=== PATIENT | male | born 1985 | race Hispanic/Latino ===

== ENCOUNTER 2019-03-22 07:50 | Inpatient (IN) | payer BC ==
[2019-03-22] MEDS ORDERED: Piperacillin/Tazobactam 4.5 GM VIAL ONE (08:33)
[2019-03-22] MEDS ORDERED: Clindamycin/D5W 900 mg/50 ml Premix Bag ONE (08:33)
[2019-03-22 08:37] LABS: #Eosinphils 0.1 thou/uL (0.0-0.7); #Lymphocytes 1.5 thou/uL (1.20-3.40); #Monocytes 0.8 thou/uL (0.11-0.59); #Neutrophils 8.2 thou/uL (1.40-6.50); %Basophils 0.2 % (0.0-1.0); %Eosinophils 0.7 % (0.0-10.0); %Lymphocytes 13.9 % (21.0-51.0); %Monocytes 7.8 % (0.0-10.0); %Neutrophils 77.3 % (42.0-75.0); Hemoglobin 15.3 g/dL (14.0-18.0); Mean Corpuscular HGB CONC 33.4 g/dL (32.0-36.0); Mean Corpuscular Hemoglobin 31.1 pg (27.0-31.0); Mean Platelet Volume 8.7 fL (7.4-10.4); Platelet Count 146 thou/uL (130-400); RBC Distribution Width 12.1 % (11.5-14.5); Red Blood Cell (RBC) Count 4.91 mill/uL (4.70-6.10); White Blood Cell (WBC) Count 10.6 thou/uL (4.8-10.8)
[2019-03-22 08:52] LABS: Base Excess-Venous 1.4 mmol/L (-2.0 to 3.0); Bicarbonate (HCO3v) 25.1 mmol/L (22.0-28.0); CO2 Tension (PvCO2) 36.1 mmHg (40.0-50.0); Calcium, Ionized 1.05 mmol/L (See Comments:); Chloride 102 mmol/L (98-107); Hemoglobin - Calc 15.5 g/dL (14.0-18.0); Potassium 4.8 mmol/L (3.5-5.1); Sodium 138 mmol/L (138-145); T. Carbon Dioxide 26.2 mmol/L (22.0-28.0); vO2 Saturation-calc 79.7 % (60.0-85.0)
[2019-03-22 08:52] LABS: ALT (SGPT) 29 U/L (8-55); AST (SGOT) 15 U/L (5-34); Albumin 3.9 g/dL (3.5-5.0); Alkaline Phosphatase 88 U/L (40-150); Anion Gap 15 mmol/L (10-20); BUN (Urea Nitrogen) 10 mg/dL (8.9-20.6); Bilirubin, Total 0.4 mg/dL (0.2-1.2); Calc. Creatinine Clearance 0 mL/min (70-130); Calcium 9.1 mg/dL (7.8-10.44); Carbon Dioxide 23 mmol/L (22-29); Chloride 102 mmol/L (98-107); Estimated GFR-MDRD Greater than 90; Globulin 3.6 g/dL (2.4-3.5); Glucose 208 mg/dL (70-105); Potassium 3.6 mmol/L (3.5-5.1); Protein, Total 7.5 g/dL (6.0-8.3); Sodium 136 mmol/L (136-145)
[2019-03-22] MEDS ORDERED: diphenhydrAMINE 50 MG/ML VIAL ONE (09:39)
[2019-03-22] MEDS ORDERED: Lorazepam 2 MG/ML VIAL ONE (09:44)
--- NOTE | 2019-03-22 09:51 | CT ---
CT LEFT LOWER EXTREMITY WITH IV CONTRAST: HISTORY: Pain, swelling, and redness in the left leg. FINDINGS: There is edema and stranding of the subcutaneous fat at the anterior aspect of the left leg. No locu lar fluid collection is seen to suggest abscess formation. The bony structures are intact. IMPRESSION: Findings are suggestive of cellulitis of the left leg. No evidence of osteomyelitis. POS: [facility]
[2019-03-22] MEDS ORDERED: Fentanyl 100 MCG/2 ML VIAL ONE (10:42)
[2019-03-22] MEDS ORDERED: Adacel (T-DAP) 0.5 ML SYRINGE ONE ×2 (11:31→11:44)
--- NOTE | 2019-03-22 11:38 | PDOC.FPRHP ---
- History of Present Illness Chief Complaint: Cellulitis History of Present Illness: Pt is a 33 yo male w/o significant PMH who presented with worsening LLE redness , erythema, pain and diagnosed yesterday with cellulitis, treated with 2 g rocephin and bactrim. His symptoms started mid-week. The lesion started on the distal, medial portion of LLE and progressed up his medial leg to medial thigh. When he first noted the LE symptoms he was nauseated, and felt a subjective fever. He remained with symptoms until Sunday prompting him to be seen by [facility]. 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 He and family were concerned by rate of growth of lesion. ED Course: In the ED vitals were stable. Lactic, WBC, Kidney function WNL. CRP 17.8, Glucose 208. CT Scan of LE was performed which revealed no signs of fascia involvement, noted to be cellulitis. Dr. Norman was consulted due to the rapid progression of lesion. Of note during his CT scan he became anxious requiring benadryl administration. - Allergies/Adverse Reactions Allergies Allergy/AdvReac Type Severity Reaction Status Date / Time No Known Allergies Allergy Verified 03/22/19 15:23 - History PMHx: denies PSHx: denies FHx: denies Social: denies - Review of Systems General: reports: fever/chills, weight/appetite/sleep changes ENT: denies: nasal congestion, rhinorrhea Respiratory: denies: cough, shortness of breath Cardiovascular: reports: edema. denies: chest pain Gastrointestinal: reports: nausea. denies: vomiting Skin: reports: rashes, lesions Musculoskeletal: denies: pain, tenderness Neurological: reports: weakness. denies: numbness Psychological: reports: anxiety. denies: depression - Vital signs BP: 99/64 HR: 79 RR: 16 Tmax: 99.0 Pox: 99% on RA Wt: 117 kg - Physical Exam -Constitutional: Pt lying in bed, pt sleeping after receiving benadryl for anxiety during CT scan , uncomfortable appearing but not ill HEENT: PERRLA, EOMI Neck: FROM, trachea midline -Neck: Acanthosis nigricans Chest: no-tender to palpation, no lesions Heart: RRR, normal S1/S2 Lungs: CTAB, no respiratory distress Abdomen: soft, bowel sounds present Musculoskeletal: normal structure, ROM grossly normal Neurological: no focal deficit, CN II-XII intact -Skin: Purpura/ecchymosis FMR H&P: Results - Labs Result Diagrams: 03/22/19 08:23 03/22/19 08:23 Lab results: WBC 10.6 thou/uL (4.8-10.8) 03/22/19 08:23 Hgb 15.3 g/dL (14.0-18.0) 03/22/19 08:23 Hct 45.7 % (42.0-52.0) 03/22/19 08:23 MCV 93.0 fL (78.0-98.0) 03/22/19 08:23 Plt Count 146 thou/uL (130-400) 03/22/19 08:23 Neutrophils % 77.3 % (42.0-75.0) H 03/22/19 08:23 ESR Westergren 18 mm/hr (Less than 15) 03/22/19 08:23 VBG pCO2 36.1 mmHg (40.0-50.0) L 03/22/19 08:50 VBG pO2 41.6 mmHg (35.0-45.0) 03/22/19 08:50 Sodium 136 mmol/L (136-145) 03/22/19 08:23 Potassium 3.6 mmol/L (3.5-5.1) 03/22/19 08:23 Chloride 102 mmol/L (98-107) 03/22/19 08:23 Carbon Dioxide 23 mmol/L (22-29) 03/22/19 08:23 BUN 10 mg/dL (8.9-20.6) 03/22/19 08:23 Creatinine 0.84 mg/dL (0.7-1.3) 03/22/19 08:23 Glucose 208 mg/dL (70-105) H 03/22/19 08:23 Lactic Acid 1.4 mmol/L (0.5-2.2) 03/22/19 08:23 Calcium 9.1 mg/dL (7.8-10.44) 03/22/19 08:23 Total Bilirubin 0.4 mg/dL (0.2-1.2) 03/22/19 08:23 AST 15 U/L (5-34) 03/22/19 08:23 ALT 29 U/L (8-55) 03/22/19 08:23 Alkaline Phosphatase 88 U/L (40-150) 03/22/19 08:23 C-Reactive Protein 17.81 mg/dL (= or < 0.5) H 03/22/19 08:23 Serum Total Protein 7.5 g/dL (6.0-8.3) 03/22/19 08:23 Albumin 3.9 g/dL (3.5-5.0) 03/22/19 08:23 - Radiology Interpretation Other Additional comment: CT Scan of LLE revealed findings suggestive of cellulitis. No signs of osteomyelitis. FMR H&P: A/P - Problem List (1) Cellulitis of left lower extremity Current Visit: Yes Status: Acute Code(s): L03.116 - CELLULITIS OF LEFT LOWER LIMB (2) Hyperglycemia Current Visit: Yes Status: Acute Code(s): R73.9 - HYPERGLYCEMIA, UNSPECIFIED - Plan Pt is a 33 yo male without significant PMH who is admitted for a LLE cellulitis , currently being treated with vancomycin and assessing A1c for possible DM. # LLE Cellulitis Procalcitonin 2.51, CRP 17.8, WBC WNL. Lesion is painful, progressing half-way up medial thigh, ecchmyosis vs purpura on medial LLE. Pt had 1 day of ceftriaxone 2 g, bactrim in the outpt setting. - Continue vanc - Vanc trough pending - Procalcitonin, BMP, CBC in am - lesion demarcated, trend size # Hyperglycemia BG 208, acanthosis nigricans noted on exam. Likely precipitating factor for cellulitis - pending A1c Fluids: none VTE Prophylaxis: Lovenox Diet: Diabetic Code: Full Disposition/LOS: Pt will be admitted to OB's likely needing less than 2 midnight stay. FMR H&P: Upper Level - Pertinent history 33 yo M with no significant medical hx here with complaint of cellulitis. He was dxd yesterday at an urgent care with LLE cellulitis and started on Bactrim DS and given IM Rocephin. Symptoms initially started about 5 days ago with an area of redness and pain over his ankle that quickly spread up his medial leg. Following initial outpatient treatment he began to have subjective fever and cold sweats. Due to worsening condition he presented to the ED for evaluation. In the ED, WBC count and vitals were normal, however CRP and procal were elevated and a left shift was noted. Patient was given Vanc, Zosyn, and clindamycin and blood cultures were drawn. See video intern portion of note for full ROS, PE, vitals, and labs ROS General complains of fever and chills CV denies CP or palpitations Resp denies cough or SOB Neuro denies weakness or numbness in extremities Skin complains of redness and tenderness in L LE GI denies n/v/d - Pertinent findings PE General A&O x4, no acute distress CV RRR, no murmur Resp CTA, no respiratory distress Neuro no weakness or changes in sensation Extremities normal pulses, cap refill normal Skin area of erythema most prominent over anterior and medial L ankle. Area extends upward medially to the patients thigh. No fluctuant masses or drainage. There is a 5cm x 5xm area of hemorrhagic vesicles on medial ankle. All other areas of skin are normal. - Plan Date/Time: 03/22/191137 I, Mason Cook DO, have evaluated this patient and agree with findings/plan as outlined by video intern resident. Pertinent changes/additions are listed here. 1.LLE cellulitis -Continue Vanc -Wali area of erythema and monitor for expansion -CT reassuring for lack of abscess or subcutaneous emphysema. Low concern for necrotizing fasciitis -Motrin for pain -Trend procal 2.Hyperglycemia -Check A1c. Pt does not have dx of DM, however has a strong FHx. -Low carb diet PPx Lovenox Diet Low carb Code Full Dispo: Patient is stable, would expect significant improvement over the next 2- 3 days with discharge to home. Addendum - Attending - Attending Attestation Date/Time: 03/22/192026 I personally evaluated the patient and discussed the management with Dr. Sandoval /Joyce. I agree with the History, Examination, Assessment and Plan documented above with any addition or exceptions noted below. Patient here with cellulitis that has progressed despite outpatient antibiotics. Patient reported worsening pain, malaise, erythema, and bruising over the last 1 day. He also reports hot flashes. Labs do not show systemic infection, and CT scan does not reveal abscess or deep infection. Wound has been marked. Patient will be placed on Vancomycin and await culture results. He is also newly diagnosed DM which is likely contributing to the difficulty in eradicating infection. Anticipate 2-3 days hospitalization.
[2019-03-22] MEDS ORDERED: Ondansetron ODT 4 MG TAB PO PRN (13:01)
[2019-03-22 13:47] LABS: Hemoglobin A1c 9.1 % (4.0-6.0)
[2019-03-22] MEDS ORDERED: Dextrose 50% Abboject 50 ML SYRINGE SLOW IVP PRN (14:33)
[2019-03-22] MEDS ORDERED: Dextrose 5% in Water 1,000 ML IV PRN (14:33)
[2019-03-22] MEDS ORDERED: HumaLOG 300 UNITS/3 ML VIAL SC PRN (14:33)
[2019-03-22 14:34] VITALS: BMI 36.9
[2019-03-22] MEDS ORDERED: Sodium Chloride 0.9% 1,000 ML IV SCH (15:45)
[2019-03-22] MEDS: HumaLOG 300 UNITS/3 ML VIAL SC PRN (16:28)
[2019-03-22] MEDS ORDERED: ISOVUE-370 76%-LOCM 1 ML ONE (16:41)
--- NOTE | 2019-03-22 17:21 | CON ---
DATE OF CONSULTATION: 03/22/2019 CHIEF COMPLAINT: Left lower extremity cellulitis. HISTORY OF PRESENT ILLNESS: This is a 33-year-old male, who is newly diagnosed with diabetes during this admission, who presents with cellulitis to the left lower extremity, worsened overnight after starting oral antibiotics, admitted to the hospital for IV antibiotics. He notes pain to his pretibial region. No fevers or chills at home. He has been hemodynamically stable since admission. PAST MEDICAL HISTORY: Includes diabetes mellitus, previously unknown. Otherwise, medical history, he denies. PAST SURGICAL HISTORY: Denies. MEDICATIONS: Medicines taken daily none. ALLERGIES: NO KNOWN DRUG ALLERGIES. SOCIAL HISTORY: No smoking, alcohol, or other drugs. REVIEW OF SYSTEMS: Ten system review of systems is otherwise negative as described above. PHYSICAL EXAMINATION: VITAL SIGNS: Blood pressure is 99/64, pulse 79, respirations 16, he is afebrile. HEENT: Sclerae anicteric. Oropharynx clear. NECK: No lymphadenopathy. CHEST: Clear. HEART: Regular rate and rhythm. ABDOMEN: Soft, nontender, nondistended. EXTREMITIES: Examination of his left lower extremity revealed there to be good palpable peripheral pulses. There is erythema with ecchymoses to the anterior pretibial region. There is 1 dark area on the lateral aspect of the calf that his says is a birthmark. He has some streaking going up the medial aspect of his leg. His deeper compartments are negative and nontender. His foot is nontender to touch. LABORATORY DATA: White blood cell count 10, hemoglobin 15, platelet count is 146. He has no bands. His venous hematocrit is 46. Lactate is normal. Creatinine is normal at 0.84. IMAGING STUDIES: CT scan shows evidence of cellulitis without any gas in the deeper structures or no obvious fluid in the deeper compartments of the leg. ASSESSMENT: Severe cellulitis and new onset diabetic. PLAN: Continue IV antibiotics, glucose control. We will follow with you. Job ID: [id number]
[2019-03-22] MEDS: Acetaminophen 325 MG TAB PO PRN ×2 (17:40→22:05)
[2019-03-22] MEDS: Enoxaparin Sodium 40 MG/0.4 ML SYRINGE SC SCH (20:26)
[2019-03-22] MEDS ORDERED: Enoxaparin Sodium 40 MG/0.4 ML SYRINGE SC SCH (21:00)
[2019-03-23 05:06] LABS: Anion Gap 14 mmol/L (10-20); BUN (Urea Nitrogen) 9 mg/dL (8.9-20.6); Calc. Creatinine Clearance 238 mL/min (70-130); Calcium 8.3 mg/dL (7.8-10.44); Carbon Dioxide 18 mmol/L (22-29); Chloride 106 mmol/L (98-107); Estimated GFR-MDRD Greater than 90; Glucose 175 mg/dL (70-105); Sodium 134 mmol/L (136-145)
--- NOTE | 2019-03-23 05:59 | PDOC.FM ---
- Subjective Subjective: Pt is doing well this morning. He states there is pain on LLE with ambulation but he noticeably sees reduction in erythema. He did not a blister on R lower lip starting yesterday. He has a pinpoint ulcer on R upper mucosa as well. He did not appreciate any other lesions. - Objective Vital Signs & Weight: Vital Signs (12 hours) Temp Pulse Resp BP Pulse Ox 03/23/19 00:23 98.4 F 57 L 16 102/68 96 03/22/19 20:41 98 F 77 18 105/77 95 Weight Weight 113.398 kg I&O: 03/21/19 03/22/19 03/23/19 06:59 06:59 06:59 Intake Total 575 Balance 575 Result Diagrams: 03/23/19 06:06 03/23/19 04:25 Phys Exam - Physical Examination Constitutional: NAD HEENT: PERRLA, moist MMs blister on R lower lip, ulcer on R upper mucosa, both tender to touch Respiratory: clear to auscultation bilateral Cardiovascular: RRR, no significant murmur Gastrointestinal: soft, non-tender, no distention Musculoskeletal: no edema, pulses present -: LLE erythema decreasing in size compared to marked line, ecchymosis remains Dx/Plan (1) Cellulitis of left lower extremity Code(s): L03.116 - CELLULITIS OF LEFT LOWER LIMB Status: Acute (2) Hyperglycemia Code(s): R73.9 - HYPERGLYCEMIA, UNSPECIFIED Status: Acute (3) Diabetes Code(s): E11.9 - TYPE 2 DIABETES MELLITUS WITHOUT COMPLICATIONS Status: Acute - Plan Plan: Pt is a 33 yo male without significant PMH who is admitted for a LLE cellulitis , currently being treated with vancomycin and assessing A1c for possible DM. # LLE Cellulitis Procalcitonin 2.51, CRP 17.8, WBC WNL. Lesion is painful, progressing retirement up medial thigh, ecchmyosis vs purpura on medial LLE. Pt had 1 day of ceftriaxone 2 g, bactrim in the outpt setting. - Continue vanc - consider switching to Bactrim or Augmentin PO and if handles well d/c - Vanc trough pending at 0900 03/23 - Procalcitonin, BMP, CBC in am - lesion demarcated, downward trending in size. - Dr. Norman following pt, appreciate recs. # Diabetes Mellitus BG 208 on admission, acanthosis nigricans noted on exam. Likely precipitating factor for cellulitis. A1c 9.1 - accuchecks, SSI - consider starting Metformin 500 mg daily then increase in outpt setting # Oral Blister Monitor. No other lesions, new erythema. Not likely red man syndrome. Likely stress response. Fluids: none VTE Prophylaxis: Lovenox Diet: Diabetic Code: Full Disposition/LOS: Pt will be admitted to OB's likely needing less than 2 midnight stay. Addendum - Attending - Attending Attestation Date/Time: 03/23/19 3397 I personally evaluated the patient and discussed the management with Dr. Sandoval. I agree with the History, Examination, Assessment and Plan documented above with any addition or exceptions noted below. Patient here with cellulitis failed outpatient therapy. He continues on Vanc. Lesion is improving and pain improved. Continue Vanc, await cultures, and ambulate frequently. Patient will need treatment of his newly diagnosed DM.
[2019-03-23] MEDS: HumaLOG 300 UNITS/3 ML VIAL SC PRN ×2 (06:13→12:15)
[2019-03-23 06:57] LABS: #Eosinphils 0.1 thou/uL (0.0-0.7); #Lymphocytes 2.2 thou/uL (1.20-3.40); #Monocytes 0.6 thou/uL (0.11-0.59); #Neutrophils 4.4 thou/uL (1.40-6.50); %Basophils 0.6 % (0.0-1.0); %Eosinophils 1.8 % (0.0-10.0); %Lymphocytes 30.1 % (21.0-51.0); %Monocytes 8.3 % (0.0-10.0); %Neutrophils 59.3 % (42.0-75.0); Mean Corpuscular HGB CONC 34.9 g/dL (32.0-36.0); Mean Corpuscular Hemoglobin 32.8 pg (27.0-31.0); Mean Corpuscular Volume 93.9 fL (78.0-98.0); Mean Platelet Volume 9.3 fL (7.4-10.4); Platelet Count 148 thou/uL (130-400); Red Blood Cell (RBC) Count 4.27 mill/uL (4.70-6.10); White Blood Cell (WBC) Count 7.4 thou/uL (4.8-10.8)
--- NOTE | 2019-03-23 09:22 | PRG ---
DATE OF SERVICE: 03/23/2019 SUBJECTIVE: Mr. Espana is complaining of localized pain. No fevers or chills. OBJECTIVE: VITAL SIGNS: Blood pressure 116/77, pulse 74, respirations 18, temperature 98.2. EXTREMITIES: Left lower extremity, the streaking and redness on the upper inner thigh is improved. There is no more increased erythema outside the circled area. Within the circled area, the area of ecchymoses is now more blistering, but no bulla, no crepitants. LABORATORY DATA: White cell count is 7, with a normal differential. Creatinine 0.7, glucose 175. ASSESSMENT: Cellulitis to the left lower extremity in a patient with new onset diabetes mellitus. PLAN: Continue close observation. We will make n.p.o. after midnight in case elected to do debridement of this tomorrow. I think, the overall cellulitic picture is improved, but the blistering is a little bit worse. Job ID: [id number]
[2019-03-23] MEDS: Acetaminophen 325 MG TAB PO PRN (14:05)
[2019-03-23] MEDS: metFORMIN 500 MG TAB PO SCH (16:36)
[2019-03-23] MEDS ORDERED: diphenhydrAMINE 25 MG CAP PO PRN (19:15)
[2019-03-23 19:45] LABS: Vancomycin, Trough 15.5 ug/mL
[2019-03-23] MEDS: Enoxaparin Sodium 40 MG/0.4 ML SYRINGE SC SCH (19:57)
[2019-03-24 06:35] LABS: #Basophils 0.1 thou/uL (0.0-0.2); #Eosinphils 0.2 thou/uL (0.0-0.7); #Lymphocytes 2.6 thou/uL (1.20-3.40); #Monocytes 0.6 thou/uL (0.11-0.59); #Neutrophils 5.5 thou/uL (1.40-6.50); %Basophils 0.8 % (0.0-1.0); %Eosinophils 2.3 % (0.0-10.0); %Lymphocytes 28.5 % (21.0-51.0); %Monocytes 7.1 % (0.0-10.0); %Neutrophils 61.2 % (42.0-75.0); Hemoglobin 14.5 g/dL (14.0-18.0); Mean Corpuscular Hemoglobin 31.7 pg (27.0-31.0); Mean Corpuscular Volume 93.1 fL (78.0-98.0); Mean Platelet Volume 8.6 fL (7.4-10.4); Platelet Count 182 thou/uL (130-400); Red Blood Cell (RBC) Count 4.57 mill/uL (4.70-6.10)
[2019-03-24 06:58] LABS: Anion Gap 11 mmol/L (10-20); BUN (Urea Nitrogen) 8 mg/dL (8.9-20.6); Calc. Creatinine Clearance 232 mL/min (70-130); Carbon Dioxide 24 mmol/L (22-29); Chloride 103 mmol/L (98-107); Estimated GFR-MDRD Greater than 90; Glucose 136 mg/dL (70-105); Potassium 3.9 mmol/L (3.5-5.1); Sodium 134 mmol/L (136-145)
--- NOTE | 2019-03-24 08:40 | PDOC.FM ---
- Subjective Subjective: Pt is unchanged from yesterday. Remains with pain in LE on ambulatin. - Objective Vital Signs & Weight: Vital Signs (12 hours) Temp Pulse Resp BP Pulse Ox 03/24/19 07:36 98.0 F 64 20 113/73 95 03/24/19 03:50 98.6 F 64 18 105/68 95 03/23/19 23:08 98.7 F 67 16 118/78 97 Weight Weight 113.398 kg I&O: 03/23/19 03/24/19 03/25/19 06:59 06:59 06:59 Intake Total 1055 Balance 1055 Result Diagrams: 03/24/19 06:21 03/24/19 06:21 Phys Exam - Physical Examination Constitutional: NAD HEENT: PERRLA, moist MMs Respiratory: no wheezing, clear to auscultation bilateral Cardiovascular: RRR, no significant murmur Gastrointestinal: soft, non-tender, no distention Musculoskeletal: no edema, pulses present Deviation from normal: Erythema on Left medial lower extremity. blister is unchanged Dx/Plan (1) Cellulitis of left lower extremity Code(s): L03.116 - CELLULITIS OF LEFT LOWER LIMB Status: Acute (2) Hyperglycemia Code(s): R73.9 - HYPERGLYCEMIA, UNSPECIFIED Status: Acute (3) Diabetes Code(s): E11.9 - TYPE 2 DIABETES MELLITUS WITHOUT COMPLICATIONS Status: Acute - Plan Plan: Pt is a 33 yo male without significant PMH who is admitted for a LLE cellulitis , currently being treated with vancomycin and assessing A1c for possible DM. # LLE Cellulitis Procalcitonin 0387, WBC WNL. Lesion is painful but regressing in size, ecchmyosis vs purpura on medial LLE. Pt had 1 day of ceftriaxone 2 g, bactrim in the outpt setting. - Continue vanc - Vanc trough WNL on 03/23 - Procalcitonin, BMP, CBC in am - lesion demarcated, downward trending in size. - Dr. Norman following pt, appreciate recs; follow up on possible surg # Diabetes Mellitus BG 208 on admission, acanthosis nigricans noted on exam. Likely precipitating factor for cellulitis. A1c 9.1, BG improved 129 with start of metformin - accuchecks, SSI - consider starting Metformin 500 mg daily then increase in outpt setting # Oral Blister Monitor. No other lesions, new erythema. Not likely red man syndrome. Likely stress response. Fluids: none VTE Prophylaxis: Lovenox Diet: Diabetic Code: Full Disposition/LOS: Pt will be admitted to OB's likely needing less than 2 midnight stay. Addendum - Attending - Attending Attestation Date/Time: 03/24/19 2272 I personally evaluated the patient and discussed the management with Dr. Sandoval. I agree with the History, Examination, Assessment and Plan documented above with any addition or exceptions noted below.
--- NOTE | 2019-03-24 08:58 | PRG ---
DATE OF SERVICE: 03/24/2019 SUBJECTIVE: Mr. Espana is still having pain in this area of his pretibial region in the left lower extremity. His sugars were controlled. He is hemodynamically stable. Afebrile. OBJECTIVE: On physical exam, the area that was ecchymoses is now more of a blister, very tender to touch. The red streaking going up his inner leg is improved. LABORATORY DATA: His white blood count cell is 9. He has a normal differential. His creatinine is 0.72. ASSESSMENT: Cellulitis to left lower extremity with bulla formation now. PLAN: I think he probably needs to have this explored in the operating room just to be sure there is no necrotizing component to it. He is n.p.o. We will get him consented. Dr. Agosto will probably do that for me this afternoon. Job ID: [id number]
[2019-03-24] MEDS: metFORMIN 500 MG TAB PO SCH ×2 (09:05→17:55)
[2019-03-24] MEDS ORDERED: Lidocaine 1% PF 5 ML VIAL ONE (13:08)
[2019-03-24] MEDS ORDERED: Dexamethasone 20 MG/5 ML VIAL ONE (13:08)
[2019-03-24] MEDS ORDERED: PROPOFOL 200 MG/20 ML VIAL ONE (13:08)
[2019-03-24] MEDS ORDERED: Ondansetron PF 4 MG/2 ML Vial ONE (13:08)
[2019-03-24] MEDS ORDERED: Bupivacaine HCl 0.5%/Epinephrine 1:200,000/PF 30 ml Vial ONE (13:56)
[2019-03-24] MEDS ORDERED: Lidocaine 2% PF 5 ML VIAL ONE (13:56)
[2019-03-24] MEDS ORDERED: Midazolam HCl 2 mg/2 ml Vial ONE (14:27)
[2019-03-24] MEDS ORDERED: Fentanyl 100 MCG/2 ML VIAL ONE (14:27)
[2019-03-24] MEDS ORDERED: traMADol HCl 50 MG TAB PO PRN (16:02)
[2019-03-24] MEDS: HumaLOG 300 UNITS/3 ML VIAL SC PRN (18:45)
[2019-03-24 20:24] LABS: Vancomycin, Trough 16.2 ug/mL
[2019-03-24] MEDS: Enoxaparin Sodium 40 MG/0.4 ML SYRINGE SC SCH (20:38)
--- NOTE | 2019-03-24 21:06 | OP ---
DATE OF PROCEDURE: 03/24/2019 PREOPERATIVE DIAGNOSIS: Left leg abscess with blisters. POSTOPERATIVE DIAGNOSIS: Left leg abscess with blisters. Note the patient was seen by Dr. Norman who asked me to assume his care and perform an incision and drainage today. Dr. Norman did the consult yesterday. PROCEDURES PERFORMED: Incision and drainage of left leg abscess, finding some cloudy fluid and removal of blister. Wound left open for healing by secondary intention, 3.5 cm skin incision made and culture submitted. ANESTHESIA: General, local 0.5% Marcaine with epinephrine 30 mL mixed with 2% Xylocaine 10 mL. DESCRIPTION OF PROCEDURE: The patient was taken to the operating room where under general anesthesia, the left lower extremity was prepared with Betadine and draped in routine fashion. Blistered skin was removed. Yellow clear fluid under the blister contents was cultured. Incision was made and there was small amount of cloudy fluid, sent for culture, but no other significant large abscess was noted. Wound left open for healing by secondary intention. Local anesthetic, wet-to-dry dressings applied. The patient tolerated the procedure well. The patient can be discharged home washing the wound daily with soap and water, saline wet-to-dry dressings. He could be discharged home tomorrow after we look at the wound. Job ID: [id number]
[2019-03-25] MEDS: Ibuprofen 600 MG TAB PO PRN ×2 (02:47→08:04)
[2019-03-25] MEDS: Acetaminophen 500 MG TAB PO PRN ×3 (02:47→23:47)
[2019-03-25] MEDS: traMADol HCl 50 MG TAB PO PRN ×2 (03:53→20:36)
--- NOTE | 2019-03-25 06:25 | PDOC.FM ---
- Subjective Subjective: Pt is doing well w/o any complaints. He is tolerating metformin well. - Objective Vital Signs & Weight: Vital Signs (12 hours) Temp Pulse Resp BP Pulse Ox 03/25/19 03:37 98.3 F 68 18 105/71 97 03/25/19 00:00 98.4 F 64 18 126/73 95 03/24/19 20:07 98.1 F 67 16 114/76 95 Weight Weight 113.398 kg I&O: 03/23/19 03/24/19 03/25/19 06:59 06:59 06:59 Intake Total 1055 600 Balance 1055 600 Result Diagrams: 03/25/19 08:02 03/25/19 08:02 Phys Exam - Physical Examination Constitutional: NAD HEENT: PERRLA, sclera anicteric Respiratory: clear to auscultation bilateral Cardiovascular: RRR, no significant murmur Gastrointestinal: soft, non-tender, no distention, positive bowel sounds Musculoskeletal: no edema, pulses present LLE debridement ~1.5 inches in length, tissue looks healthy Neurological: non-focal, normal sensation, moves all 4 limbs Psychiatric: normal affect, A&O x 3 Dx/Plan (1) Cellulitis of left lower extremity Code(s): L03.116 - CELLULITIS OF LEFT LOWER LIMB Status: Acute (2) Hyperglycemia Code(s): R73.9 - HYPERGLYCEMIA, UNSPECIFIED Status: Acute (3) Diabetes Code(s): E11.9 - TYPE 2 DIABETES MELLITUS WITHOUT COMPLICATIONS Status: Acute - Plan Plan: Plan: Pt is a 33 yo male without significant PMH who is admitted for a LLE cellulitis , currently being treated with vancomycin and post-op debridement day #1; began metformin for newly diagnosed diabetes. # LLE Cellulitis requiring Debridement Procalcitonin downtrending, WBC WNL. Lesion is painful but regressing in size, ecchmyosis vs purpura on medial LLE. Pt had 1 day of ceftriaxone 2 g, bactrim in the outpt setting. - Continue vanc (03/23) - Vanc trough WNL on 03/23, 03/24 - Procalcitonin downtrending thru 03/24 - lesion demarcated, downward trending in size. - Dr. Norman following pt, appreciate recs; pt tolerated debridement well, possible d/c today with doxy x 7 days # Diabetes Mellitus BG 208 on admission, acanthosis nigricans noted on exam. Likely precipitating factor for cellulitis. A1c 9.1, BG improved with initiation of metformin. Increase in the outpt setting. Will start low dose lisinopril for renal protection. - accuchecks, SSI # Oral Blister Monitor. Apply topical ointments. Fluids: none VTE Prophylaxis: Lovenox Diet: Diabetic Code: Full Disposition/LOS: Pt will be admitted to OB's likely needing less than 2 midnight stay, likely leaving today. Addendum - Attending - Attending Attestation Date/Time: 03/25/19 3721 I personally evaluated the patient and discussed the management with Dr. Sandoval. I agree with the History, Examination, Assessment and Plan documented above with any addition or exceptions noted below.
[2019-03-25] MEDS: metFORMIN 500 MG TAB PO SCH ×2 (08:03→17:07)
[2019-03-25 08:46] LABS: #Lymphocytes 2.1 thou/uL (1.20-3.40); #Monocytes 0.9 thou/uL (0.11-0.59); #Neutrophils 10.8 thou/uL (1.40-6.50); %Basophils 0.3 % (0.0-1.0); %Eosinophils 0.2 % (0.0-10.0); %Lymphocytes 14.8 % (21.0-51.0); %Monocytes 6.3 % (0.0-10.0); %Neutrophils 78.3 % (42.0-75.0); Hemoglobin 14.8 g/dL (14.0-18.0); Mean Corpuscular HGB CONC 33.7 g/dL (32.0-36.0); Mean Corpuscular Volume 92.2 fL (78.0-98.0); Mean Platelet Volume 8.9 fL (7.4-10.4); Platelet Count 201 thou/uL (130-400); RBC Distribution Width 11.8 % (11.5-14.5); Red Blood Cell (RBC) Count 4.77 mill/uL (4.70-6.10); White Blood Cell (WBC) Count 13.8 thou/uL (4.8-10.8)
[2019-03-25 09:13] LABS: Anion Gap 16 mmol/L (10-20); BUN (Urea Nitrogen) 12 mg/dL (8.9-20.6); Calc. Creatinine Clearance 235 mL/min (70-130); Carbon Dioxide 20 mmol/L (22-29); Chloride 103 mmol/L (98-107); Estimated GFR-MDRD Greater than 90; Glucose 125 mg/dL (70-105); Potassium 4.3 mmol/L (3.5-5.1); Sodium 135 mmol/L (136-145)
[2019-03-25] MEDS: HumaLOG 300 UNITS/3 ML VIAL SC PRN ×2 (11:21→17:07)
--- NOTE | 2019-03-25 13:12 | PRG ---
DATE OF SERVICE: 03/25/2019 SUBJECTIVE: He is feeling pretty good. He had some pain with the dressing change this morning. The dressings are clean, dry, and intact. He is afebrile and his vital signs are stable. ASSESSMENT: Left lower extremity cellulitis with blistering status post debridement by Dr. Agosto. PLAN: Likely teach family about wound care. Discharge home tomorrow on oral antibiotics and tight glucose control. Job ID: [id number]
--- NOTE | 2019-03-25 18:43 | PRG ---
DATE OF SERVICE: 03/25/2019 [place] Espana is doing well today. He remains afebrile. He still has pain in his leg. Cultures are negative today. The leg wound looks much better. There is no cellulitis. The open wound is healthy. The patient today removed the dressing, washed with soap and water in the shower and a temporary dressing was applied. I then removed his temporary dressing and demonstrated to the patient and his how to care for the wound. He should wash it daily with soap and water and apply normal saline wet-to-dry dressings. Wound care demonstration performed. I have discussed with family practice that in my opinion, the patient can be discharged to home. He can follow up in my office in 2 to 3 weeks. I will see him as needed this hospitalization. Job ID: [id number]
[2019-03-25] MEDS: Enoxaparin Sodium 40 MG/0.4 ML SYRINGE SC SCH (20:35)
[2019-03-26] MEDS: traMADol HCl 50 MG TAB PO PRN (05:23)
--- NOTE | 2019-03-26 06:06 | PDOC.FM ---
- Subjective Subjective: Doing well today. He did become lightheaded. Denies SOB, fall, chest pain, weakness, sensory deficits, motor deficits. - Objective Vital Signs & Weight: Vital Signs (12 hours) Temp Pulse Resp BP Pulse Ox 03/26/19 03:48 97.8 F 53 L 18 113/73 96 03/26/19 00:00 97.7 F 59 L 16 120/73 94 L 03/25/19 20:30 97 03/25/19 19:46 97.6 F 65 18 115/77 97 Weight Weight 113.398 kg I&O: 03/24/19 03/25/19 03/26/19 06:59 06:59 06:59 Intake Total 600 3250 Balance 600 3250 Result Diagrams: 03/25/19 08:02 03/25/19 08:02 Phys Exam - Physical Examination Constitutional: NAD Respiratory: no wheezing, clear to auscultation bilateral Cardiovascular: RRR, no significant murmur Gastrointestinal: soft, no distention Musculoskeletal: no edema, pulses present -: LLE properly bandaged Dx/Plan (1) Cellulitis of left lower extremity Code(s): L03.116 - CELLULITIS OF LEFT LOWER LIMB Status: Acute (2) Hyperglycemia Code(s): R73.9 - HYPERGLYCEMIA, UNSPECIFIED Status: Acute (3) Diabetes Code(s): E11.9 - TYPE 2 DIABETES MELLITUS WITHOUT COMPLICATIONS Status: Acute - Plan Plan: Pt is a 33 yo male without significant PMH who is admitted for a LLE cellulitis , currently being treated with vancomycin and post-op debridement day #2; began metformin. discharge today with PO abx. # LLE Cellulitis requiring Debridement Procalcitonin downtrending, WBC WNL. Lesion is painful but regressing in size, ecchmyosis vs purpura on medial LLE. Pt had 1 day of ceftriaxone 2 g, bactrim in the outpt setting. Started on vanc in inpt setting, debridement by surgery. Will discharge home today. - Continue vanc (03/23) - Vanc trough WNL on 03/23, 03/24 - Procalcitonin downtrending thru 03/24 - lesion demarcated, downward trending in size. - Dr. Norman, Dr. Agosto following pt, appreciate recs; pt tolerated debridement well, d/c today with doxy x 7 days # Diabetes Mellitus BG 208 on admission, acanthosis nigricans noted on exam. Likely precipitating factor for cellulitis. A1c 9.1, BG improved with initiation of metformin. Increase in the outpt setting. Pt became lightheaded with lisinopril. Will stop and consider restarting in outpt setting. - accuchecks, SSI # Oral Blister Monitor. Apply topical ointments. Fluids: none VTE Prophylaxis: Lovenox Diet: Diabetic Code: Full Disposition/LOS: Pt will be admitted to OB's likely needing less than 2 midnight stay, likely leaving today. Addendum - Attending - Attending Attestation Date/Time: 03/26/19 2159 I personally evaluated the patient and discussed the management with Dr. Sandoval. I agree with the History, Examination, Assessment and Plan documented above with any addition or exceptions noted below. Advised patient to get up and move around. I think with his blood pressure normalizing, and glucose normalizing he is feeling strange. Expect to discharge later today.
[2019-03-26] MEDS: metFORMIN 500 MG TAB PO SCH (07:58)
[2019-03-26] MEDS: Lisinopril 2.5 MG TAB PO SCH ×2 (08:02→08:06)
[2019-03-26 11:40] VITALS: BP 120/80; TEMP 97.8
[2019-03-26] MEDS: Acetaminophen 500 MG TAB PO PRN (11:43)
--- NOTE | 2019-03-27 02:14 | DIS ---
DATE OF ADMISSION: 03/22/2019 DATE OF DISCHARGE: 03/26/2019 RESIDENT: Duy Sandoval DO ADMITTING ATTENDING: Roosevelt Cartwright MD DISCHARGE ATTENDING: Harsha Gallegos MD CONSULTS: Surgery, Antoine Norman MD PRIMARY DIAGNOSES: 1. Cellulitis requiring debridement. 2. Hyperglycemia. 3. Newly diagnosed diabetes type 2. SECONDARY DIAGNOSES: None. DISCHARGE MEDICATIONS: Metformin 500 mg p.o. b.i.d. Bactrim 480, two tablets p.o. daily x7 days. DISCONTINUED MEDICATIONS: None. HISTORY OF PRESENT ILLNESS/HOSPITAL COURSE: The patient is a 33-year-old male, who presented with worsening left lower extremity redness, erythema, pain. The day prior, he had been diagnosed with cellulitis and treated with 2 g Rocephin and Bactrim in the outpatient setting. His symptoms started earlier that week, causing him become nauseated and became febrile. He states that lesion began on the medial portion of his left lower extremity and began spreading up onto the medial portion of his thigh. Due to this and him being previously treated, we decided to admit the patient for the quickly progressing lesion. In the ED, his vitals were stable. Lactic acid, white blood cell count, kidney function were all within normal limits. CRP was elevated at 17.8 and glucose was found to be 208. CT scan of the lower extremity was performed, which revealed no fascial involvement and was noted to be cellulitis. ED consulted Dr. Norman just to have surgery, stratify the lesion due to the past progression of growth. He was started on vancomycin for the cellulitis. The cellulitis on his second day regressed in size with the addition of vancomycin. Dr. Norman followed up with the patient again and opted to do debridement. The patient was made n.p.o. at midnight and the next day taken for this debridement. The patient tolerated the procedure well. The reason for debridement of the cellulitis was pain with ambulation, the lesion had began to blister. The patient remained on vancomycin through the rest of his stay. The patient was also found to have elevated blood sugars. He was started on metformin 500 mg p.o. b.i.d. We recommended he follow up with his primary care physician in the outpatient setting to titrate the metformin. Through his stay, his blood sugar control was much better, running around the 130s and 140s. We also considered but did not start lisinopril low dose to serve as a renal protection as this patient is a newly diagnosed type 2 diabetic. I advised the patient to follow up with his primary care physician within the next 7 days. If his cellulitis becomes worse, the area of debridement shows signs of infection or he has fever, should follow up with the provider. DISPOSITION: Stable. DISCHARGE INSTRUCTIONS: 1. Location: [facility]. 2. Diet: Carb consistent. 3. Activity: Ad oj. 4. Followup: Followup with primary care provider within the next 7 days to review new onset diabetes, cellulitis. Job ID: [id number]
--- NOTE | 2019-03-28 10:18 | PQF ---
[employer] Crystal Reports Winform [facility]erPA[facility]ST[facility] ERICA STEELE MAN SMITH MD [id number] SURG [id number] CLINICAL DOCUMENTATION CLARIFICATION FORM: POST DISCHARGE Addendum to original discharge summary date: ___04/22/2019 Late entry note date: __04/22/2019 -Neuropathic ulceration & cellulitis DATE: 03/28/2019 ATTN: MAN SMITH MD Please exercise your independent, professional judgment in responding to the clarification form. Clinical indicators are provided on the bottom of this form for your review Please check appropriate box(s): [yes ] Cellulitis due to diabetes mellitus [ ] Cellulitis not due to diabetes mellitus [ ] Unspecified [ ] Other diagnosis [ ] Unable to determine For continuity of documentation, please document condition throughout progress notes and discharge summary. Thank You. CLINICAL INDICATORS - SIGNS / SYMPTOMS / LABS -Cellulitis -DS, 03/26, Duy Sandoval MD -New diagnosed diabetic type 2-DS, 03/26, Duy Sandoval MD -Hyperglycemia-DS, 03/26, Duy Sandoval MD -DM likely precipitating factor for cellulitis-Family medicine PN, 03/24, Duy Sandoval MD RISKS: -Leg abscess with blisters-OP report, 03/24, MAN SMITH MD -Incision and drainage of abscess- OP report, 03/24, MAN SMITH MD TREATMENT: -Rocephin.IV-DS, 03/26, Duy Sandoval MD -metformin.P.O-DS, 03/26, Duy Sandoval MD (This form is maintained as a part of the permanent medical record) 2014 [employer] All Rights Reserved Darian Taylor [not provided] [not provided] MTDD
== END 2019-03-26 12:30 | disposition home or self-care (01) | DRG 638 ==
LOC: ERS 07:50 → SURG A 10:15 → OBSVTOIN 10:15
PROVIDERS: ADMIT Student in an Organized Health Care Education/Training Program; ATTEND Student in an Organized Health Care Education/Training Program
PROC: 0HBLXZZ Excision of Left Lower Leg Skin, External Approach (ICD-10-PCS; principal; 2019-03-24)
PROC: 0H9LXZZ Drainage of Left Lower Leg Skin, External Approach (ICD-10-PCS; 2019-03-24)
DX: E11.628 Type 2 diabetes mellitus with other skin complications (principal); L03.116 Cellulitis of left lower limb; L02.416 Cutaneous abscess of left lower limb; E11.65 Type 2 diabetes mellitus with hyperglycemia
CPT/HCPCS: 36415; 36416; 80048; 80053; 80202; 82330; 82803; 83036; 83605; 84145; 85025; 85652; 86140; 87040; 87070; 87205; 90471; 90715; 96365; 96367; 96375; J0670; J1100; J1200; J1650; J2001; J2060; J2250; J2405; J2543; J2704; J3010; J3370; J3490; J7050; Q0162; Q0163; Q9966

== ENCOUNTER 2020-11-08 07:13 | Emergency (ER) | payer OTHER, BC ==
[2020-11-08 07:45] LABS: #Basophils 0.1 thou/uL (0.0-0.2); #Eosinphils 0.2 thou/uL (0.0-0.7); #Monocytes 0.9 thou/uL (0.11-0.59); #Neutrophils 7.1 thou/uL (1.40-6.50); %Basophils 0.5 % (0.0-1.0); %Eosinophils 1.7 % (0.0-10.0); %Lymphocytes 26.6 % (21.0-51.0); %Monocytes 7.9 % (0.0-10.0); %Neutrophils 63.3 % (42.0-75.0); Hemoglobin 15.5 g/dL (14.0-18.0); Mean Corpuscular HGB CONC 33.9 g/dL (32.0-36.0); Mean Corpuscular Hemoglobin 32.3 pg (27.0-31.0); Mean Corpuscular Volume 95.5 fL (78.0-98.0); Mean Platelet Volume 8.1 fL (7.4-10.4); Platelet Count 190 thou/uL (130-400); White Blood Cell (WBC) Count 11.2 thou/uL (4.8-10.8)
[2020-11-08 08:03] LABS: ALT (SGPT) 35 U/L (8-55); AST (SGOT) 20 U/L (5-34); Albumin 3.9 g/dL (3.5-5.0); Alkaline Phosphatase 80 U/L (40-110); Anion Gap 18 mmol/L (10-20); BUN (Urea Nitrogen) 11 mg/dL (8.9-20.6); Bilirubin, Total 0.4 mg/dL (0.2-1.2); Calc. Creatinine Clearance 0 mL/min (70-130); Calcium 8.5 mg/dL (7.8-10.44); Carbon Dioxide 21 mmol/L (22-29); Chloride 103 mmol/L (98-107); Globulin 3.4 g/dL (2.4-3.5); Glucose 145 mg/dL (70-105); Potassium 3.7 mmol/L (3.5-5.1); Protein, Total 7.3 g/dL (6.0-8.3); Sodium 138 mmol/L (136-145)
[2020-11-08] MEDS ORDERED: Acetaminophen 500 MG TAB ONE (10:00)
== END 2020-11-08 10:08 | disposition home or self-care (01) ==
LOC: ERS 07:13
DX: S16.1XXA Strain of muscle, fascia and tendon at neck level, initial encounter (principal); S39.012A Strain of muscle, fascia and tendon of lower back, initial encounter; E11.9 Type 2 diabetes mellitus without complications; V89.2XXA Person injured in unspecified motor-vehicle accident, traffic, initial encounter; Y92.411 Interstate highway as the place of occurrence of the external cause
CPT/HCPCS: 36415; 70450; 71045; 71250; 72125; 74177; 80053; 80307; 83605; 85025; 93005; G0390